=== PATIENT | male | born 1935 | race Caucasian/White ===

== ENCOUNTER → 2020-02-11 12:51 | Outpatient (CLI) | payer OTHER ==
[2019-11-18 11:23] VITALS: BMI 28.6
[~2020-02-11 12:51] MED LIST: BENADRYL25 MG PO; ELIQUIS5 MG PO; GLUCOPHAGE500 MG PO; LISINOPRIL2.5 MG PO; MIRALAX17 GM PO; PRAVACHOL40 MG PO; SYNTHROID112 MCG PO; ZANAFLEX4 MG PO
== END | disposition home or self-care (01) ==
LOC: D.HCCECHO 12:51
PROVIDERS: ATTEND Internal Medicine Cardiovascular Disease
DX: I35.0 Nonrheumatic aortic (valve) stenosis (principal)